=== PATIENT | male | born 1985 | race Caucasian/White ===

== ENCOUNTER 2018-09-16 19:40 | Inpatient (IN) | payer SELFPAY ==
[~2018-09-16] VITALS: Ht 177.8 cm; Wt 95.7 kg
[2018-09-16] MEDS ORDERED: IV NS 0.9% 1,000 ML BAG IV ONE (20:00)
[2018-09-16] MEDS ORDERED: ONDANSETRON HCL/PF 4 MG/2 ML VIAL IVP ONE (20:00)
--- NOTE | 2018-09-16 20:00 | NUR ---
Pt WAS KENTRELL FROM URGENT CARE C/O LUQ ABD PAIN WITH +N/V/D FOR THE PAST 5DAYS. DENIES DYSURIA & DENIES HEMATURIA. 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 Pt IS A/OX4, VERBAL, ABLET TO MAKE NEEDS KNOWN. NO S/S OF ACUTE DISTRESS OR SOB NOTED. Pt BEING SEEN BY MD AT BEDSIDE.
[2018-09-16 20:19] LABS: BASOPHILS % (AUTO) 0.3 % (0.0-2.0); HEMATOCRIT 45 % (39-51); HEMOGLOBIN 15.8 g/dL (13.5-17.5); LYMPHOCYTES # (AUTO) 0.8 /CMM (0.8-4.8); LYMPHOCYTES % (AUTO) 15.4 % (20.0-44.0); MEAN CORPUSCULAR HGB CONC 35 g/dl (31.0-36.0); MEAN CORPUSCULAR VOLUME 83 fL (80-96); MONOCYTES # (AUTO) 0.4 /CMM (0.1-1.30); MONOCYTES % (AUTO) 8.5 % (2.0-12.0); NEUTROPHILS # (AUTO) 3.9 /CMM (1.8-8.9); NEUTROPHILS % (AUTO) 75.8 % (43.0-81.0); PLATELET COUNT (AUTO) 105 /CMM (150-450); RED BLOOD CELL COUNT(AUTO) 5.44 MIL/uL (4.5-6.0); WHITE BLOOD COUNT (AUTO) 5.1 K/uL (4.3-11.0)
[2018-09-16 20:34] LABS: ALBUMIN 3.5 g/dL (3.4-5.0); BILIRUBIN,DIRECT 0.1 mg/dL (0.0-0.2); BILIRUBIN,TOTAL 0.6 mg/dL (0.2-1.0); CALCIUM, SERUM 6.2 mg/dL (8.5-10.1); CREATININE 2.2 mg/dL (0.6-1.3); TOTAL PROTEIN, SERUM 6.9 g/dL (6.4-8.2)
[2018-09-16] MEDS ORDERED: ONDANSETRON HCL/PF 4 MG/2 ML VIAL ONE (20:34)
[2018-09-16 20:36] LABS: POTASSIUM 2.8 mmol/L (3.5-5.1)
[2018-09-16] MEDS ORDERED: POTASSIUM CHLORIDE 20 MEQ TAB.PRT.SR PO ONE ×2 (21:00→21:13)
[2018-09-16] MEDS ORDERED: POTASSIUM CL. PREMIX PERIPHER. 100 ML ONE (21:12)
--- NOTE | 2018-09-16 21:27 | NUR ---
Nataliia cabrera in ED - 09/16/18 at 2149 by VALERIA PT IS ASSIGNED TO TELE #: [id number], DX: RESPIRATORY DISTRESS, AND ACCEPTING: AMANDA LU NP
[2018-09-16] MEDS: POTASSIUM CL. PREMIX PERIPHER. 50 ML IV SCH ×2 (21:35→23:12)
--- NOTE | 2018-09-16 21:35 | NUR ---
ALL ORDERED MEDS GIVEN. FIRST BAG OF KCL RUNNING.
[2018-09-16] MEDS ORDERED: MAG HYDROX/AL HYDROX/SIMETH 30 ML UDC PO PRN (22:00)
[2018-09-16] MEDS ORDERED: ONDANSETRON HCL/PF 4 MG/2 ML VIAL IVP PRN (22:00)
[2018-09-16] MEDS ORDERED: HYDROCODONE/APAP 10/325MG 1 EA TABLET PO PRN (22:00)
[2018-09-16] MEDS ORDERED: HYDROCODONE/APAP 5/325MG 1 EACH TABLET PO PRN (22:00)
[2018-09-16] MEDS ORDERED: MAGNESIUM HYDROXIDE 30 ML UDC PO PRN (22:00)
[2018-09-16] MEDS ORDERED: Z GUARD REMEDY 2 OZ OINT TP PRN (22:00)
--- NOTE | 2018-09-16 22:50 | NUR ---
Pt IS BEING TRANSFERED PER [facility]S PROTOCOL TO ROOM 322-2. REPORT ALREADY GIVEN TO 3W RU [place] BY PARTY PLAN SALESPERSON.
--- NOTE | 2018-09-16 23:00 | NUR ---
RN MS ADMISSION NOTES PATIENT BROUGHT INTO THE UNIT VIA GURNEY, ALERT AND ORIENTED X 4, NO ACUTE DISTRESS AT THIS TIME. ORIENTED TO ROOM, CALL LIGHT AND USE OF CALL LIGHT, ADMISSION PROCESS AND PT VERBALIZED UNDERSTANDING. PT DENIES ABDOMINAL PAIN AT THIS TIME, NO NAUSEA. NOTED PT TO HAVE IV PERIPHERAL LINE ON THE LAC G#18 , INTACT AND PATENT. ALL PATIENT'S NEEDS ATTENDED TO. PLACED CALL LIGHT WITHIN EASY REACH. WILL CONTINUE TO MONITOR PT.
[2018-09-16] MEDS ORDERED: IPRATROPIUM BROMIDE 14 GM INHALER (or 12.9 GM) IH PRN ×2 (23:30)
[2018-09-16] MEDS ORDERED: ALBUTEROL FS 2.5 MG/0.5 ML VIAL.NEB NEB PRN (23:30)
[2018-09-16] MEDS: IV NS 0.9% 1,000 ML IV SCH (23:50)
[2018-09-17] MEDS ORDERED: Calcium Gluconate 1GM/10ML 4.65 MEQ in IV NS 0.9% 50 ML IV ONE ×2
[2018-09-17] MEDS ORDERED: CEFTRIAXONE 1 G VIAL ONE (00:05)
[2018-09-17] MEDS: AZITHROMYCIN 250 MG TABLET PO SCH (00:08)
[2018-09-17] MEDS: CEFTRIAXONE 1 G in IV D5W 50 ML IV SCH (00:21)
[2018-09-17] MEDS ORDERED: Calcium Gluconate 0.465 MEQ/ML VIAL IV ONE (00:59)
--- NOTE | 2018-09-17 06:22 | NUR ---
RN CLOSING NOTES PATIENT IN BED, ALERT AND ORIENTED X 4, NO SOB BREATHING EVEN UNLABORED, NOTED WITH 2 EPISODES OF WATERY STOOL. DENIES NAUSEA AND VOMITING. ALL PATIENT'S NEEDS ATTENDED TO, LOCKED BED IN LOW POSITION, PLACED CALL LIGHT WITHIN EASY REACH. WILL ENDORSE TO AM SHIFT NURSE FOR CONTINUITY OF CARE.
[2018-09-17] MEDS: IV NS 0.9% 1,000 ML IV SCH (06:51)
[2018-09-17 06:54] LABS: APPEARANCE,URINE CLEAR (CLEAR); BILIRUBIN,URINE NEGATIVE (NEGATIVE); BLOOD, URINE TRACE-INTA Ery/uL (NEGATIVE); COLOR,URINE YELLOW (YELLOW); KETONES,URINE NEGATIVE (NEGATIVE); LEUKOCYTE ESTERASE ,URINE NEGATIVE (NEGATIVE); NITRITE, URINE NEGATIVE (NEGATIVE); PROTEIN,URINE NEGATIVE (NEGATIVE); UGLUCOSE NEGATIVE (NEGATIVE); UROBILINOGEN,URINE 0.2 EU/dL (0.2)
[2018-09-17 06:58] LABS: BACTERIA,URINE Few /HPF (None Seen); RBC,URINE 0-2 /HPF (0-2); SQUAMOUS EPITHELIAL CELL,UR Few /HPF (None Seen); WBC,URINE 0-2 /HPF (0-3)
[2018-09-17 07:06] LABS: BASOPHILS % (AUTO) 0.1 % (0.0-2.0); HEMATOCRIT 43 % (39-51); HEMOGLOBIN 14.8 g/dL (13.5-17.5); LYMPHOCYTES # (AUTO) 1.1 /CMM (0.8-4.8); LYMPHOCYTES % (AUTO) 24.9 % (20.0-44.0); MEAN CORPUSCULAR HGB CONC 35 g/dl (31.0-36.0); MEAN CORPUSCULAR VOLUME 83 fL (80-96); MONOCYTES # (AUTO) 0.3 /CMM (0.1-1.30); MONOCYTES % (AUTO) 7.8 % (2.0-12.0); NEUTROPHILS % (AUTO) 67.2 % (43.0-81.0); PLATELET COUNT (AUTO) 92 /CMM (150-450); RED BLOOD CELL COUNT(AUTO) 5.15 MIL/uL (4.5-6.0); WHITE BLOOD COUNT (AUTO) 4.4 K/uL (4.3-11.0)
[2018-09-17] MEDS: PANTOPRAZOLE 40 MG TABLET.DR PO SCH (07:30)
[2018-09-17] MEDS ORDERED: IPRATROPIUM NEB FS 0.5 MG/2.5 ML AMPUL.NEB NEB PRN (07:30)
[2018-09-17 07:32] LABS: CALCIUM, SERUM 6.6 mg/dL (8.5-10.1); CREATININE 1.7 mg/dL (0.6-1.3); MAGNESIUM 1.4 mg/dL (1.8-2.4); PHOSPHORUS 1.9 mg/dL (2.5-4.9); POTASSIUM 3.2 mmol/L (3.5-5.1)
[2018-09-17 07:34] LABS: THYROID STIMULATING HORMONE 2.028 uIU/mL (0.358-3.74)
[2018-09-17 08:00] VITALS: BP 125/70
[2018-09-17] MEDS: NICOTINE PATCH (14MG) 14 MG PATCH.TD24 TD SCH (09:05)
[2018-09-17] MEDS: DOCUSATE SODIUM 100 MG CAPSULE PO SCH ×2 (09:05→15:51)
[2018-09-17] MEDS: Magnesium 1GM/D5W 100ML PREMIX 100 ML IV SCH ×2 (09:44→10:54)
[2018-09-17] MEDS ORDERED: Potassium Phosphate meq 11 MEQ in IV D5W 100 ML IV SCH (10:00)
[2018-09-17] MEDS ORDERED: K PHOS NEUTRAL 250 MG TABLET PO ONE (14:00)
[2018-09-17 16:00] VITALS: BP 126/89
[2018-09-17] MEDS: ACETAMINOPHEN 325 MG TABLET PO PRN (17:16)
--- NOTE | 2018-09-17 17:20 | NUR ---
Upon v/s assessment patient found to have 102.1 temp. Patient currently on IV fluids at 150ml/hr. Also 650mg of tylenol administered prn for fever.
--- NOTE | 2018-09-17 18:50 | NUR ---
Patient AOX4 with no c/o of pain noted. Temp 100.6 upon reassessment. Applied cold compresses to arms and neck to lower temp. Charged reassessment to oncoming nurse. Patient diet changed from liquid to regular upon patient tolerance per MD order. Patient tolerated dinner meal with no s/s of distress or n/v noted. Patient consumed 50% of dinner with effect. IV fluids running at 75ml/hr with no s/s of distress noted. IV site to L hand in tact with no s/s of infection or infiltration.
--- NOTE | 2018-09-17 20:15 | NUR ---
RN MS OPENING NOTES RECEIVED PT SITTING IN CHAIR, AWAKE, ALERT ORIENTED X4. BREATHING EVEN AND UNLABORED ON RA. NO COMPLAINT OF PAIN OR DISCOMFORT AT THIS TIME, IV ACCESS ON THE LAC #18 NS @150ML/HR. SKIN INTACT, AMBULATORY WITH BRP.BED IN LOWEST LOCKED POSITION, ALL LIGHT WITHIN REACH AT ALL TIMES. WILL CONTINUE TO MONITOR
[2018-09-17 20:22] VITALS: BP 97/70
[2018-09-17] MEDS: IV NS 0.9% 1,000 ML IV PRN (23:01)
[2018-09-18] MEDS: CEFTRIAXONE 1 G in IV D5W 50 ML IV SCH (00:16)
[2018-09-18] MEDS: AZITHROMYCIN 250 MG TABLET PO SCH (00:17)
[2018-09-18] MEDS: ONDANSETRON HCL/PF 4 MG/2 ML VIAL IVP PRN (04:09)
[2018-09-18] MEDS: ACETAMINOPHEN 325 MG TABLET PO PRN ×2 (04:38→15:17)
--- NOTE | 2018-09-18 04:54 | NUR ---
x 1 EPISODE OF A SIGNIFICANT AMOUNT OF BRIGHT RED BLOOD IN THE STOOL WITH TEMP OF 100 AND FEELING OF NAUSEA. ZOFRAN AND TYLENOL ADMINISTERED. WILL COLLECT STOOL SAMPLE IF EPISODE REPEATS, DR. MOHR MADE AWARE
--- NOTE | 2018-09-18 06:42 | NUR ---
PT REMAINS IN BED, AWAKE ALERT ORIENTEDX4, BREATHING EVEN AND UNLABORED ON RA, NO SOB, COUGH OR CONGESTION. MILD FEVER OF 100, COOLING MEASURES IN PLACE. REPORTS NO NAUSEA OR PAIN AT THE MOMENT. IV ACCESS ON THE LAC #18G NS @150ML/HR. NO OTHER EPISODES OF BLOOD IN THE STOOL DURIGN SHIFT. BED IN LOWEST LOCKED POSITION CALL LIGHT WIHTIN REACH AT ALL TIMES, WILL ENDORSE TO DAY NURSE FOR COMFORT.
[2018-09-18 07:17] LABS: BASOPHILS % (AUTO) 0.3 % (0.0-2.0); HEMATOCRIT 44 % (39-51); HEMOGLOBIN 15.3 g/dL (13.5-17.5); LYMPHOCYTES # (AUTO) 0.8 /CMM (0.8-4.8); LYMPHOCYTES % (AUTO) 19.5 % (20.0-44.0); MEAN CORPUSCULAR HGB CONC 35 g/dl (31.0-36.0); MEAN CORPUSCULAR VOLUME 84 fL (80-96); MONOCYTES # (AUTO) 0.2 /CMM (0.1-1.30); MONOCYTES % (AUTO) 4.9 % (2.0-12.0); NEUTROPHILS # (AUTO) 3.2 /CMM (1.8-8.9); NEUTROPHILS % (AUTO) 75.3 % (43.0-81.0); PLATELET COUNT (AUTO) 94 /CMM (150-450); RED BLOOD CELL COUNT(AUTO) 5.29 MIL/uL (4.5-6.0); WHITE BLOOD COUNT (AUTO) 4.3 K/uL (4.3-11.0)
--- NOTE | 2018-09-18 07:29 | NUR ---
MS RN OPENING NOTE RECEIVED PT IN BED SLEEPING AND EASILY AROUSABLE. PT IS ALERT AND ORIENTED X4. BREATHING IS EVEN AND UNLABORED ON ROOM AIR. L AC #18G IV INFUSING NS @ 150ML/HR WITHOUT REDNESS OR SWELLING. PT AWARE OF NEED TO COLLECT STOOL, BEDSIDE COMMODE IN PLACE AND PT VERBALIZED UNDERSTANDING. ALL NEEDS ATTENDED TO, BED IS LOCKED AND IN LOWEST POSITION, SIDE RAILS UP X2, CALL LIGHT WITHIN REACH.
[2018-09-18 07:31] LABS: CALCIUM, SERUM 7.2 mg/dL (8.5-10.1); CREATININE 1.4 mg/dL (0.6-1.3); PHOSPHORUS 2.1 mg/dL (2.5-4.9); POTASSIUM 3.3 mmol/L (3.5-5.1)
[2018-09-18 08:00] VITALS: BP 109/68
[2018-09-18] MEDS: NICOTINE PATCH (14MG) 14 MG PATCH.TD24 TD SCH (08:25)
[2018-09-18] MEDS: DOCUSATE SODIUM 100 MG CAPSULE PO SCH ×2 (08:25→17:00)
[2018-09-18] MEDS: PANTOPRAZOLE 40 MG TABLET.DR PO SCH ×2 (08:25→17:33)
[2018-09-18] MEDS: IV NS 0.9% 1,000 ML IV PRN (08:49)
[2018-09-18] MEDS ORDERED: POTASSIUM CHLORIDE 20 MEQ TAB.PRT.SR PO ONE (09:00)
--- NOTE | 2018-09-18 09:00 | NUR ---
RN STOOL COLLECTION CONTACTED DR. TABARES REQUESTING ORDERS FOR STOOL COLLECTION. AWAITING RESPONSE.
--- NOTE | 2018-09-18 09:04 | NUR ---
MS RN STOOL COLLECTION NO NEW ORDERS FROM
--- NOTE | 2018-09-18 09:58 | NUR ---
MS RN OKAY TO SHARE INFORMATION PER PT, OKAY TO SHARE INFORMATION REGARDING MEDICAL CONDITION WITH VALERIA HICKS (MOTHER).
--- NOTE | 2018-09-18 10:39 | NUR ---
MS RN DR. ADAM AT BEDSIDE DR. ADAM AT THE BEDSIDE. INFORMED OF BLOODY STOOL, RECEIVED NEW ORDERS AND INITIATED.
--- NOTE | 2018-09-18 10:49 | NUR ---
MS VENCES C.DIFF C.DIFF SAMPLE HANDED DIRECTLY TO LAB AND RECORDED IN C.DIFF BOOK. NO FORM NEEDED STOOL IS WITHIN 3 DAYS OF ADMISSION.
--- NOTE | 2018-09-18 11:00 | NUR ---
MS RN DR. TABARES BEDSIDE DR. TABARES AT THE BEDSIDE TO ASSESS PT, INFORMED DR OF NEED TO REPLACE PHOS, AWAITING ORDERS.
--- NOTE | 2018-09-18 13:01 | NUR ---
MS RU PAUL CONTACTED DR. TABARES REGARDING PHOSPHORUS REPLACEMENT, AWAITING RESPONSE
[2018-09-18] MEDS ORDERED: K PHOS NEUTRAL 250 MG TABLET PO ONE (15:00)
[2018-09-18 15:50] VITALS: BP 123/60
[2018-09-18 16:00] VITALS: BP 123/60
--- NOTE | 2018-09-18 18:00 | NUR ---
RN PT OFF UNIT PT OFF UNIT FOR CT SCAN, CONSENT AND CHECKLIST SIGNED AND GIVEN TO
[2018-09-18] MEDS ORDERED: IOHEXOL-300 100 ML VIAL IV ONE (18:12)
[2018-09-18] MEDS ORDERED: IV NS 0.9% 250 ML IV ONE (18:12)
[2018-09-18] MEDS ORDERED: CT SWABBABLE VALVE TRANS SET 1 EA INFUS.SET MC ONE (18:12)
--- NOTE | 2018-09-18 18:20 | NUR ---
MS RU CLIFFORD FOR CT CONTRAST PER DARRIN HUMPHREYS FOR CT WITH CONTRAST WITH CREATININE OF 1.4.
--- NOTE | 2018-09-18 18:45 | NUR ---
MS RN PT BACK ON UNIT PT BACK FROM CT SCAN IN MEDICALLY STABLE CONDITION.
--- NOTE | 2018-09-18 18:51 | NUR ---
MS RN CLOSING NOTE PT IN BED SLEEPING AND EASILY AROUSABLE. PT IS ALERT AND ORIENTED X4. BREATHING IS EVEN AND UNLABORED ON ROOM AIR. L AC #18G IV SALINE LOCKED WITHOUT REDNESS OR SWELLING. ADLS PROVIDED. PT HAD 2 EPISODES OF LIQUID RED/BROWN STOOL WITH CLOTS DURING THE SHIFT. ALL NEEDS ATTENDED TO, BED IS LOCKED AND IN LOWEST POSITION, SIDE RAILS UP X2, CALL LIGHT WITHIN REACH. WILL ENDORSE TO OPTICAL DISPENSER NURSE FOR CONTINUITY OF CARE.
--- NOTE | 2018-09-18 19:00 | NUR ---
MS RN NOTES RECEIVE PT IN BED A/O X 4, NO PAIN AT THIS TIME. IN STABLE CONDITION, NOT IN DISTRESS, SAFETY MEASURES IN PLACE. WILL CONTINUE TO MONITOR.
[2018-09-18 20:00] VITALS: BP 121/73
[2018-09-18 20:50] VITALS: BP 121/73
[2018-09-19] MEDS: CEFTRIAXONE 1 G in IV D5W 50 ML IV SCH ×2 (00:41→23:50)
[2018-09-19] MEDS: AZITHROMYCIN 250 MG TABLET PO SCH ×2 (00:41→23:51)
--- NOTE | 2018-09-19 06:26 | NUR ---
MS RN CLOSING NOTES REMAINS STABLE. TOLERATING ROOM AIR 98%. ALL NURSING CARE RENDERED. KEPT CLEAN AND DRY AND COMFORTABLE, NEEDS ATTENDED AND ANTICIPATED. NO COMPLAIN OF PAIN. ON LOW BED AT ALL TIMES TO ENSURE SAFETY. SAFE HAZARD FREE ENVIRONMENT PROVIDED. CALL LIGHT WITHIN EASY TO REACH. WILL ENDORSE NEXT SHIFT CONTINUITY OF CARE
--- NOTE | 2018-09-19 07:26 | NUR ---
MS RN OPENING NOTE RECEIVED PT IN BED SLEEPING AND EASILY AROUSABLE. PT IS ALERT AND ORIENTED X4. BREATHING IS EVEN AND UNLABORED ON ROOM AIR. L AC #18G IV IS SALINE LOCKED WITHOUT REDNESS OR SWELLING. BED IS LOCKED AND IN LOWEST POSITION, SIDE RAILS UP X2, CALL LIGHT WITHIN REACH.
[2018-09-19 08:00] VITALS: BP 122/76
[2018-09-19] MEDS: NICOTINE PATCH (14MG) 14 MG PATCH.TD24 TD SCH (08:13)
[2018-09-19] MEDS: PANTOPRAZOLE 40 MG TABLET.DR PO SCH ×2 (08:13→16:39)
[2018-09-19] MEDS: DOCUSATE SODIUM 100 MG CAPSULE PO SCH ×2 (08:13→16:40)
[2018-09-19 10:02] LABS: BASOPHILS % (AUTO) 0.2 % (0.0-2.0); HEMATOCRIT 43 % (39-51); HEMOGLOBIN 14.8 g/dL (13.5-17.5); LYMPHOCYTES # (AUTO) 0.6 /CMM (0.8-4.8); LYMPHOCYTES % (AUTO) 22.8 % (20.0-44.0); MEAN CORPUSCULAR HGB CONC 34 g/dl (31.0-36.0); MEAN CORPUSCULAR VOLUME 83 fL (80-96); MONOCYTES # (AUTO) 0.2 /CMM (0.1-1.30); MONOCYTES % (AUTO) 6.6 % (2.0-12.0); NEUTROPHILS # (AUTO) 1.8 /CMM (1.8-8.9); NEUTROPHILS % (AUTO) 70.4 % (43.0-81.0); PLATELET COUNT (AUTO) 79 /CMM (150-450); RED BLOOD CELL COUNT(AUTO) 5.17 MIL/uL (4.5-6.0); WHITE BLOOD COUNT (AUTO) 2.6 K/uL (4.3-11.0)
[2018-09-19 10:16] LABS: CALCIUM, SERUM 8.1 mg/dL (8.5-10.1); CREATININE 1.3 mg/dL (0.6-1.3); MAGNESIUM 1.8 mg/dL (1.8-2.4); PHOSPHORUS 3.4 mg/dL (2.5-4.9); POTASSIUM 3.5 mmol/L (3.5-5.1)
[2018-09-19 10:30] LABS: BAND % (MANUAL) 2 % (0.0-5.0); LYMPHOCYTES % (MANUAL) 18 % (16-48); MONOCYTES % (MANUAL) 4 % (0-11.0); NEUTROPHILS % (MANUAL) 76 (42-76)
--- NOTE | 2018-09-19 11:18 | NUR ---
MS RN CONTACTED HOSPITALIST INFORMED DR. TABARES OF WBC 2.6, PLATELETS 79, AND LIPASE 2003. NO NEW ORDERS AT THIS TIME.
[2018-09-19 16:00] VITALS: BP 108/65
[2018-09-19] MEDS: ONDANSETRON HCL/PF 4 MG/2 ML VIAL IVP PRN (16:39)
[2018-09-19] MEDS: METRONIDAZOLE 500MG/ NS 100ML 500 MG in PREMIX 1 EA IV SCH ×2 (16:40→20:26)
--- NOTE | 2018-09-19 18:21 | NUR ---
MS RN CLOSING NOTE PT SITTING UP AT EDGE OF BED EATING DINNER. PT IS ALERT AND ORIENTED X4. BREATHING IS EVEN AND UNLABORED ON ROOM AIR. L AC #18G IV SALINE LOCKED WITHOUT REDNESS OR SWELLING. ADLS PROVIDED. ALL NEEDS ATTENDED TO, BED IS LOCKED AND IN LOWEST POSITION, SIDE RAILS UP X2, CALL LIGHT WITHIN REACH. WILL ENDORSE TO VEIN PUMPER NURSE FOR CONTINUITY OF CARE.
--- NOTE | 2018-09-19 19:30 | NUR ---
MS RN NOTES RECEIVE PT SITTING IN THE CHAIR A/O X 3, IN STABLE CONDITION, NOT IN DISTRESS, SAFETY MEASURES IN PLACE. WILL CONTINUE TO MONITOR.
[2018-09-19 20:00] VITALS: BP 116/73
[2018-09-19] MEDS: ACETAMINOPHEN 325 MG TABLET PO PRN (20:26)
[2018-09-20 04:00] VITALS: BP 117/71
[2018-09-20] MEDS: METRONIDAZOLE 500MG/ NS 100ML 500 MG in PREMIX 1 EA IV SCH ×2 (05:00→13:17)
--- NOTE | 2018-09-20 06:26 | NUR ---
MS RN CLOSING NOTES ASLEEP AND EASILY AWAKEN. TOLERATING ROOM AIR 99%. KEPT CLEAN AND DRY AND COMFORTABLE, NEEDS ATTENDED AND ANTICIPATED. NO COMPLAIN OF PAIN. ALL NURSING CARE RENDERED. ON LOW BED AT ALL TIMES TO ENSURE SAFETY. SAFE HAZARD FREE ENVIRONMENT PROVIDED. CALL LIGHT WITHIN EASY TO REACH. WILL ENDORSE NEXT SHIFT CONTINUITY OF CARE
[2018-09-20 06:53] VITALS: BP_SYST 107; BP_SYST 112; BP_SYST 114; BP_DIAS 70; BP_DIAS 79; BP_DIAS 82
[2018-09-20 07:06] LABS: BASOPHILS % (AUTO) 0.1 % (0.0-2.0); HEMATOCRIT 42 % (39-51); HEMOGLOBIN 14.4 g/dL (13.5-17.5); LYMPHOCYTES # (AUTO) 0.6 /CMM (0.8-4.8); LYMPHOCYTES % (AUTO) 26.5 % (20.0-44.0); MEAN CORPUSCULAR HGB CONC 34 g/dl (31.0-36.0); MEAN CORPUSCULAR VOLUME 84 fL (80-96); MONOCYTES # (AUTO) 0.2 /CMM (0.1-1.30); MONOCYTES % (AUTO) 9.2 % (2.0-12.0); NEUTROPHILS # (AUTO) 1.4 /CMM (1.8-8.9); NEUTROPHILS % (AUTO) 64.2 % (43.0-81.0); PLATELET COUNT (AUTO) 71 /CMM (150-450); RED BLOOD CELL COUNT(AUTO) 4.99 MIL/uL (4.5-6.0); WHITE BLOOD COUNT (AUTO) 2.3 K/uL (4.3-11.0)
[2018-09-20 07:13] LABS: CALCIUM, SERUM 8.2 mg/dL (8.5-10.1); CREATININE 1.3 mg/dL (0.6-1.3); MAGNESIUM 1.8 mg/dL (1.8-2.4); PHOSPHORUS 3.7 mg/dL (2.5-4.9); POTASSIUM 3.7 mmol/L (3.5-5.1)
--- NOTE | 2018-09-20 07:50 | NUR ---
MS RN OPENING NOTE RECEIVED PT IN BED SLEEPING COMFORTABLY AND EASILY AROUSABLE. PT IS ALERT AND ORIENTED X4. BREATHING IS EVEN AND UNLABORED ON ROOM AIR. L AC #18G IV PATENT AND INTACT. SAFETY MEASURES OBSERVED, RAILS UP X2, CALL LIGHT WITHIN REACH. WILL MONITOR ACCORDINGLY.
[2018-09-20 08:00] VITALS: BP 125/66
[2018-09-20 09:04] LABS: BAND % (MANUAL) 1 % (0.0-5.0); LYMPHOCYTES % (MANUAL) 22 % (16-48); MONOCYTES % (MANUAL) 10 % (0-11.0); NEUTROPHILS % (MANUAL) 67 (42-76)
[2018-09-20] MEDS: DOCUSATE SODIUM 100 MG CAPSULE PO SCH (09:29)
[2018-09-20] MEDS: PANTOPRAZOLE 40 MG TABLET.DR PO SCH (09:29)
[2018-09-20] MEDS: NICOTINE PATCH (14MG) 14 MG PATCH.TD24 TD SCH (09:29)
[2018-09-20] MEDS ORDERED: METR500T PO (12:54)
[2018-09-20] MEDS ORDERED: CIPR-262 PO (12:54)
--- NOTE | 2018-09-20 14:23 | NUR ---
RN NOTES PATIENT IS FOR DISCHARGE TODAY PER MD ORDERED.
--- NOTE | 2018-09-20 16:09 | NUR ---
MS RN CLOSING NOTES Patient has been cleared for discharge home by MD. Patient had episode of blood in the stool x1, VSS. Notified Dr. Orourke, per MD and GI cleared patient to go home. Patient ambulates independently, skin intact. IVC removed in RFA, gauze applied. Discharge instruction given to patient, explained new prescription antibiotic to take, instructed to follow up with PCP in 1 week, verbalized understanding. Belongings check and send with the patient prior DC. Patient left hosp in stable condition via private car.
== END 2018-09-20 16:00 | disposition home or self-care (01) | DRG 377 ==
LOC: ER 19:46 → TELE 22:15 → MED 09-17 01:20
PROVIDERS: ADMIT Registered Nurse; ATTEND Internal Medicine
DX: K92.2 Gastrointestinal hemorrhage, unspecified (principal); K85.80 Other acute pancreatitis without necrosis or infection; N17.0 Acute kidney failure with tubular necrosis; E87.1 Hypo-osmolality and hyponatremia; F12.90 Cannabis use, unspecified, uncomplicated; E86.0 Dehydration; G43.A0 Cyclical vomiting, in migraine, not intractable; T40.7X5A Adverse effect of cannabis (derivatives), initial encounter; Y92.009 Unspecified place in unspecified non-institutional (private) residence as the place of occurrence of the external cause; E10.9 Type 1 diabetes mellitus without complications; E66.9 Obesity, unspecified; Z68.30 Body mass index [BMI] 30.0-30.9, adult; Z86.73 Personal history of transient ischemic attack (TIA), and cerebral infarction without residual deficits; Z79.4 Long term (current) use of insulin; I10 Essential (primary) hypertension; E87.6 Hypokalemia; E83.51 Hypocalcemia; K52.9 Noninfective gastroenteritis and colitis, unspecified; J40 Bronchitis, not specified as acute or chronic
CPT/HCPCS: 36415; 71045-TC; 80048-TC; 80061-TC; 80076-TC; 81000-TC; 83605-TC; 83690-TC; 83735-TC; 84100-TC; 84443-TC; 85025-TC; 87045-TC; 87070-TC; 87081-TC; 87086-TC; 89055; A4216; A4606; G0378; J0610; J0696; J2405; J3475; J3480; J3490; J7030; J7050; J7060; Q9967; Z7610